=== PATIENT | female | born 1980 | race African-American/Black ===

== ENCOUNTER 2018-12-03 19:57 | Emergency (ER) | payer MEDICAID, OTHER ==
[~2018-12-03] VITALS: Ht 170.2 cm; Wt 117.0 kg
[2018-12-03 20:57] LABS: Basophils # (auto) 0.1 uL; Eosinophils # (auto) 0.1 uL; Eosinophils % (auto) 0.8 % (0.0-7.0); Hemoglobin 11.6 g/dL (12.2-16.2); Mean Corpuscular Hemoglobin 28.9 pg (28.0-32.0); Monocytes # (auto) 0.7 uL
[2018-12-03 20:59] LABS: Basophils % (auto) 0.6 % (0.0-2.0); Hematocrit 33.7 % (36.0-46.0); Lymphocytes # (auto) 2.4 uL; Lymphocytes % (auto) 23.8 % (10.0-50.0); Mean Corpuscular Hgb Conc. 34.3 g/dL (32.0-36.0); Mean Corpuscular Volume 84.3 fL (80.0-100.0); Monocytes % (auto) 7.2 % (0.0-12.0); Neutrophils # (auto) 6.8 uL; Neutrophils % (auto) 67.6 % (37.0-80.0); Nucleated Red Blood Cells % 0.1 %; Platelet Count (auto) 451 10^3/uL (140-450); White Blood Cell 10.1 10^3/uL (4.4-10.8)
[2018-12-03 21:14] LABS: Albumin 3.7 g/dL (3.4-5.0); Calcium 8.9 mg/dL (8.5-10.1); Potassium 3.6 mmol/L (3.5-5.1)
[2018-12-03 21:18] LABS: BUN/Creatinine Ratio 15.6; Bilirubin, Total 0.2 mg/dL (0.2-1.0); Total Protein 8.7 g/dL (6.4-8.2)
[2018-12-04] MEDS ORDERED: AMLO10TA13 PO (02:38)
[2018-12-04] MEDS ORDERED: BACL10TA PO (02:38)
[2018-12-04] MEDS ORDERED: CITA-77 PO (02:38)
[2018-12-04 02:57] VITALS: BP 157/83
== END 2018-12-04 04:49 | disposition home or self-care (01) ==
LOC: ER 20:05
DX: F45.8 Other somatoform disorders (principal); R60.9 Edema, unspecified
CPT/HCPCS: 36415; 80053; 83880; 84702; 85025